=== PATIENT | female | born 1970 | race Caucasian/White ===

== ENCOUNTER 2024-03-02 05:49 | Day surgery (SDC) | payer BC, OTHER ==
[2024-02-25 14:49] VITALS: BP 128/77
[~2024-03-02] VITALS: Ht 162.6 cm; Wt 82.7 kg
[~2024-03-02 05:49] MED LIST: AVAPRO150 MG PO; BAYER CHEWABLE81 MG PO; ESTRACE0.5 MG PO; FARXIGA10 MG PO; FISH OIL 1,001000 MG PO; FLONASE ALLERG9.9 ML; LACTATED RINGER'S 1,000 ML IV SCH; LIPITOR40 MG PO; METFORMIN HCL1000 MG PO; MIRALAX17 GM PO; VENTOLIN HFA18 GM; VITAMIN D325 MCG PO; ZINC30 MG PO; ZYRTEC10 MG PO
[2024-03-02 06:06] VITALS: BP 138/77
[2024-03-02] MEDS ORDERED: HEParin SOD (PORCINE) 5,000 UNIT/0.5 ML SYR SUB-Q SCH (07:00)
[2024-03-02] MEDS ORDERED: CEFAZOLIN SODIUM 2 GM/20 ML SYR IV SCH (07:00)
[2024-03-02] MEDS ORDERED: LIDOCAINE HCL 1% 5 ML SDV INJ ONE (07:00)
[2024-03-02] MEDS ORDERED: IBLOOD GLUCOSE TEST STRIP 1 EA TEST VI PRN (07:00)
[2024-03-02] MEDS ORDERED: KETAMINE in NS 50 MG/5 ML SYR ONE (07:27)
[2024-03-02] MEDS ORDERED: fentaNYL citrate 100 MCG/2 ML VIAL ONE (07:27)
[2024-03-02] MEDS ORDERED: KETOROLAC TROMETHAMINE 30 MG/ML VIAL ONE (07:31)
[2024-03-02] MEDS ORDERED: DEXAMETHASONE SOD PHOS 4 MG/ML VIAL ONE (07:31)
[2024-03-02] MEDS ORDERED: propofoL 200 MG/20 ML VIAL ONE (07:31)
[2024-03-02] MEDS ORDERED: dexmedeTOMIDine HCl 200 MCG/2 ML VIAL ONE (07:31)
[2024-03-02] MEDS ORDERED: ondansetron HCL 4 MG/2 ML VIAL ONE (07:31)
[2024-03-02] MEDS ORDERED: ACETAMINOPHEN 1,000 MG/100 ML VIAL ONE (07:32)
[2024-03-02] MEDS ORDERED: LIDOCAINE HCL 2% 5 ML SDV ONE (07:32)
[2024-03-02] MEDS ORDERED: IBUPROFEN600 MG PO (08:51)
[2024-03-02] MEDS ORDERED: OXYCODON-ACETA1 EAC2 PO (08:51)
[2024-03-02] MEDS ORDERED: ACETAMINOPHEN500 MG PO (08:51)
[2024-03-02] MEDS ORDERED: NALOXONE HCL 0.4 MG SYR IV PRN (09:00)
[2024-03-02] MEDS ORDERED: OXYCODONE/APAP 7.5/325 TAB PO PRN (09:00)
[2024-03-02] MEDS ORDERED: ACETAMINOPHEN 500 MG TAB PO PRN (09:00)
[2024-03-02] MEDS ORDERED: IBUPROFEN 600 MG TAB PO PRN (09:00)
[2024-03-02 09:15] VITALS: BP 97/61
[2024-03-02 10:31] VITALS: BP 102/61
--- NOTE | 2024-03-04 11:35 | PATH ---
[facility] [address] [place], [place] [address] Signed SPECIMEN(S): A RIGHT MEDIAL BREAST TISSUE SPECIMEN SOURCE: A. RIGHT MEDIAL BREAST TISSUE CLINICAL HISTORY: Intraductal papilloma, right breast, no dysplastic component, right breast 4 o'clock position. FINAL PATHOLOGIC DIAGNOSIS: Breast, right medial, excision: - Benign breast tissue with intraductal micropapillomas without atypia and usual ductal hyperplasia - Biopsy site changes BRP MICROSCOPIC EXAMINATION: Histologic sections of all submitted blocks are examined by light microscopy. These findings, together with the gross examination, support the pathologic diagnosis. GROSS DESCRIPTION: The specimen, labeled and designated "Kia Chacko, " and designated on the requisition "right medial breast tissue," is received in formalin and consists of 24 gram oriented portion of yellow-munoz fibroadipose tissue that is 5.7 x 5.3 x 2.4 cm. A short suture is present and identifies the superior margin; a long suture identifies the lateral margin. The specimen is inked as follows: superior - blue; inferior - green; medial - red; lateral - orange; anterior - yellow; and posterior - black. The specimen is serially sectioned from medial to lateral into 11 slices revealing a metallic warp hauler detector in slice four surrounded by focal areas of hemorrhage. A discrete mass lesion is not grossly identified. Approximately 95% of the remaining specimen is a yellow-munoz greasy adipose tissue and 5% is a white-munoz delicate fibrous tissue. The tissue surrounding the clip is submitted for histologic examination. Bathing Suit Maker sections are submitted in 10 cassettes. Cassette Summary: (A1) slice one, medial soft tissue resection margin, perpendicular (A2-A3) slice two PATIENT NAME: MELINA CHACKO PATHOLOGY DATE OF : 66 REPORT #: [id number] PHYSICIAN: ANTONIO ONEIL PCP: ABRAM WARNER REPORT IS CONFIDENTIAL AND NOT TO BE RELEASED WITHOUT AUTHORIZATION [facility] [address] [place], [place] [address] Signed (A4-A5) slice three (A6-A7) slice four, clip in A7 (A8-A9) slice five (A10) slice 11, lateral soft tissue resection margin, perpendicular Time of collection: 8:19 AM March 02, 2024. Time into formalin: 8:26 AM March 02, 2024. Processor load time: 9 AM March 03, 2024. Ischemic time: 7 minutes Total fixation time in formalin: 24 hours 34 minutes The ASCO/CAP guidelines related to HER2 and hormone receptor testing in breast specimens have been met and the specimen has been placed in formalin within one hour and fixed in 10% neutral buffered formalin for 6 to 72 hours. FB (under the direct supervision of a pathologist) The Gross Description was prepared using a voice recognition system. The report was reviewed for accuracy; however, sound-alike word errors, addition and/or deletions may occur. If there is any question about this report, please contact Client Services. ADDITIONAL NOTES: Immunohistochemical and/or in situ hybridization studies if performed in this case included appropriate positive controls that reacted as expected. This test was developed and its performance characteristics determined by [facility]. It has not been cleared or approved by the U.S. Food and Drug Administration. The FDA has determined that such clearance or approval is not necessary. This test is used for clinical purposes. It should not be regarded as investigational or for research. [facility] is certified under the Clinical Laboratory Improvement Amendments of 1988 (CLIA) as qualified to perform high complexity clinical laboratory testing. PERFORMING LABORATORY: Technical component was performed by [facility], [address] [place] [id number] (CLIA# [id number]). Professional interpretation was performed by [facility] - [facility], [address] [place] [id number] (CLIA#: [id number]). Diagnostician: Edwin Bingham MD Pathologist Electronically Signed 03/04/2024 PATIENT NAME: MELINA CHACKO PATHOLOGY DATE OF : 66 REPORT #: [id number] PHYSICIAN: ANTONIO ONEIL PCP: ABRAM WARNER REPORT IS CONFIDENTIAL AND NOT TO BE RELEASED WITHOUT AUTHORIZATION [facility] [address] [place] [address] [place] Sims [id number] Signed Copies: ~ PATIENT NAME: MELINA CHACKO PATHOLOGY DATE OF : 66 REPORT #: [id number] PHYSICIAN: ANTONIO ONEIL PCP: ABRAM WARNER REPORT IS CONFIDENTIAL AND NOT TO BE RELEASED WITHOUT AUTHORIZATION
--- NOTE | 2024-03-07 14:27 | OR ---
[facility] [address] [place], [place] [address] Signed DATE OF OPERATION: 03/02/2024 SURGEON: Jovana Dyson MD PREOPERATIVE DIAGNOSIS: Right medial inferior breast mass. Initial biopsy consistent with intraductal papilloma. POSTOPERATIVE DIAGNOSIS: Right medial inferior breast mass. Initial biopsy consistent with intraductal papilloma. PROCEDURE: Image guided excisional biopsy right medial breast ([employer] insurance manager). INDICATION: This 53-year-old white woman is a patient of Dr. Sera Hooker and SIERRA Marte. She was found on mammogram to have an abnormality of the right medial inferior breast considered BI-RADS category 4. An ultrasound had been performed January 12, 2024 based on her mammogram. Image guided biopsy was performed on January 20, 2024 with the pathology report describing "intraductal papilloma without atypia" with fibrocystic changes. Although the biopsy was benign, additional recommendations for possible biopsy have been made as the patient is somewhat concerned regarding the possibility of breast cancer. She has no family history of breast cancer and no symptoms of the breast, specifically no nipple discharge or other problem. She understands the risk of bleeding, infection, and cosmetic deformity related to biopsy. The lesion was nonpalpable and therefore image guidance is appropriate for excision. The marker was left at the biopsy site. [employer] insurance manager technology was deemed most advisable in her situation. The marker was placed a few days ago. Strong signal was noted in the preop holding area today allowing for excision by image guidance. She understands as does her the risk of operation and wished to proceed. FINDINGS: A strong signal was noted in the medial inferior aspect of the right breast. An incision was made along the line of skin tension. Wide resection was undertaken incorporating the marker and the [employer] insurance manager reflector device. The specimen was marked with a short stitch superior and a long stitch lateral. is good. DESCRIPTION OF PROCEDURE: The patient was brought to the operating room and given a general LMA type anesthetic. Preoperative antibiotic Ancef was given and sequential compression device stockings were used. It had already been affirmed that the device localized the lesion in the medial Electronically Signed By: JOVANA DYSON MD 03/07/24 1427 PATIENT NAME: MELINA NIEVES OPERATIVE REPORT DATE OF : 66 REPORT #: [id number] PHYSICIAN: JOVANA DYSON MD PCP: ABRAM WARNER-Mike REPORT IS CONFIDENTIAL AND NOT TO BE RELEASED WITHOUT AUTHORIZATION [facility] [address] [place], [place] [address] Signed aspect of the right breast. The breast and chest wall was prepared with a chlorhexidine solution and draped sterilely. Interrogation of the medial aspect of the right breast was undertaken with [employer] insurance manager probe and the area of highest signal was marked. An incision was made along the line of skin tension and dissection carried through the dermis with electrocautery. Wide resection was undertaken with electrocautery using the [employer] insurance manager probe to confirm appropriate position. Wide resection was undertaken and a 4 cm x 3 cm specimen was excised. Specimen was oriented with a short stitch superior and a long stitch lateral. There was essentially no bleeding. Specimens sent for radiographic confirmation, though the [employer] insurance manager did affirm the excised specimen to contain the device. The wound was closed in layers with interrupted 2-0 Vicryl and a running subcuticular 3-0 Vicryl for the skin. Steri-Strips were applied as was an Acticoat dressing. 4 mL of 0.25% Marcaine had been injected locally. She tolerated the procedure well. MD ROWDY Dolan/ALCIDES /[id number] cc: SIERRA Marte DO Copies: IRINA HOOKER (ESTEBAN) ~ Electronically Signed By: JOVANA DYSON MD 03/07/24 1427 PATIENT NAME: MELINA NIEVES OPERATIVE REPORT DATE OF : 66 REPORT #: [id number] PHYSICIAN: JOVANA DYSON MD PCP: ABRAM WARNER REPORT IS CONFIDENTIAL AND NOT TO BE RELEASED WITHOUT AUTHORIZATION
== END 2024-03-02 10:43 | disposition home or self-care (01) ==
LOC: DS 05:49
PROVIDERS: ATTEND Surgery
PROC: 0HBT3ZX Excision of Right Breast, Percutaneous Approach, Diagnostic (ICD-10-PCS; principal; 2024-03-02 07:30)
DX: D24.1 Benign neoplasm of right breast (principal); E11.9 Type 2 diabetes mellitus without complications; I10 Essential (primary) hypertension; Z79.84 Long term (current) use of oral hypoglycemic drugs; Z79.82 Long term (current) use of aspirin; Z79.899 Other long term (current) drug therapy; Z91.013 Allergy to seafood; Z88.8 Allergy status to other drugs, medicaments and biological substances; Z90.710 Acquired absence of both cervix and uterus
CPT/HCPCS: 00400; 76098; J0131; J0690; J1100; J1644; J1885; J2001; J2405; J2704; J3010; J3490; J7121